=== PATIENT | female | born 1990 | race Caucasian/White ===

== ENCOUNTER 2024-11-05 15:05 | Outpatient (REF) | payer MEDICAID, SELFPAY ==
[2024-11-05 17:55] LABS: Cannabinoids THC Positive (Negative); METHADONE URINE SCREEN Negative (Negative)
[2024-11-07 12:20] LABS: Fentanyl Scr w/Rfx Confirm Negative ng/mL (<1)
== END 2024-11-05 15:06 | disposition home or self-care (01) ==
LOC: LBN 15:05
PROVIDERS: Visit Provider Advanced Practice Midwife
DX: O99.323 Drug use complicating pregnancy, third trimester (principal); F12.90 Cannabis use, unspecified, uncomplicated; O26.893 Other specified pregnancy related conditions, third trimester; R30.0 Dysuria
CPT/HCPCS: 80307; 80348; 87077; 87086; 87186

== ENCOUNTER 2024-11-27 15:00 | Outpatient (REF) | payer MEDICAID, SELFPAY | END 2024-11-27 15:01 | disposition home or self-care (01) | LOC: LBN 15:00 | PROVIDERS: Visit Provider Advanced Practice Midwife | DX: Z34.93 Encounter for supervision of normal pregnancy, unspecified, third trimester (principal) | CPT/HCPCS: 87081 ==

== ENCOUNTER 2024-12-03 16:19 | Outpatient (REF) | payer MEDICAID, SELFPAY | END 2024-12-03 16:20 | disposition home or self-care (01) | LOC: LBN 16:19 | PROVIDERS: Visit Provider Advanced Practice Midwife | DX: Z34.93 Encounter for supervision of normal pregnancy, unspecified, third trimester (principal) | CPT/HCPCS: 87086 ==

== ENCOUNTER 2024-12-05 04:08 | Outpatient (CLI) | payer MEDICAID, SELFPAY ==
--- NOTE | 2024-12-05 07:15 | DI.US_ITS ---
Exam(s) US OB SUSANNE WEIGHT EXAM: US OB SUSANNE WEIGHT CLINICAL HISTORY: size greater than dates Z34.93 SUPERVISION . TECHNIQUE: Transabdominal obstetrical ultrasound performed. COMPARISON: No exams were available for comparison FINDINGS:: Number of fetuses: 1 position: CEPHALIC Placental location: FUNDAL No evidence of previa. BIOMETRIC DATA: BPD: 9.6cm, 39weeks 1day HC: 36.32cm, out of range AC: 36.8cm, 40weeks 5days FL: 6.96cm, 35weeks 5days EFW: 3,892.73g, 8lb 10.43oz, >97% Composite Age: 38weeks 4days ZA: 12/15/2024 Heart Rate: 148bpm Amniotic fluid index: 33.8cm. Polyhydramnios IMPRESSION: size is nearly 2 weeks larger than gestational age. The estimated weight is above the 97th percentile Polyhydramnios. DATA REPOSITORY:
== END 2024-12-05 04:28 ==
LOC: DI 04:11
PROVIDERS: Visit Provider Advanced Practice Midwife
DX: Z34.93 Encounter for supervision of normal pregnancy, unspecified, third trimester (principal); Z3A.39 39 weeks gestation of pregnancy
CPT/HCPCS: 76816

== ENCOUNTER 2024-12-05 15:37 | Outpatient (CLI) | payer MEDICAID, SELFPAY ==
[2024-12-05 19:52] VITALS: BP 120/68; PULSE 65
[2024-12-05 20:47] VITALS: BP 120/68; PULSE 65; TEMP 36.6
--- NOTE | 2024-12-05 21:14 | W.OBNST ---
Date of service: 12/05/24 Time of Service: 21:14 NST Evaluation Reason for NST Reasons for Nonstress Test: POLYHYDRAMNIOS Gestational Age Gestational Age in Weeks and Days: 36 Weeks and 6Days Test and Monitor Explained Test/Monitor Explained: Test Explained, Monitor Explained and Patient Verbalized Understanding Vital Signs Blood Pressure: 120/68 Pulse: 65 Temperature: 97.9 F Urine Results Urine Protein: Negative Urine Ketones: Negative Urine Glucose: Negative Urine Blood: Negative NST Information Date on Monitor: 12/05/24 Time on Monitor: 19:48 Date off Monitor: 12/05/24 Time off Monitor: 20:15 Total Time on Monitor: 27 NST Interventions: None Contraction Frequency: 2-10 NST Evaluation Patient States Movement: Present FHR Baseline: 140 Variability: Moderate 6-25 bpm Accelerations: 15x15 Decelerations: None NST Results: Reactive Note Ultrasound Done: N/A. NST Note Note: Cvx: 1-2/thick, midpelvis and firm, vtx -4, intact membranes SUSANNE earlier today 33.8, EFW 97th percentile, random fingerstick glucose this evening=[address] Goode: NST x2/wk, BPP on Monday, repeat SUSANNE qweek, IOL @ 39 wks or earlier if SUSANNE increases Diagnosis and plan of care discussed in detail with pt and FOB, they express agreement with plan NST Reviewed and Verified by: Thao Frost
[2024-12-05 21:19] VITALS: BP 120/68; PULSE 65; TEMP 36.6
== END 2024-12-05 21:00 ==
LOC: BCD 15:37 → OBS 19:46
PROVIDERS: Visit Provider Advanced Practice Midwife
DX: Z3A.36 36 weeks gestation of pregnancy (principal); O40.3XX1 Polyhydramnios, third trimester, fetus 1
CPT/HCPCS: 59025

== ENCOUNTER 2024-12-09 07:26 | Outpatient (CLI) | payer MEDICAID, SELFPAY ==
--- NOTE | 2024-12-09 | DI.US_ITS ---
Exam(s) US OB BIOPHYSICAL PROFILE EXAM: US OB BIOPHYSICAL PROFILE CLINICAL HISTORY: polyhydramnios. TECHNIQUE: Transabdominal obstetrical ultrasound was performed. COMPARISON: US US OB SUSANNE WEIGHT from 12/05/2024 FINDINGS: There is a single viable intrauterine gestation with cardiac activity identified. Fetus is in cephalic position. Placenta is fundal. FINDINGS: BREATHING MOVEMENTS: 2 GROSS MOVEMENTS: 2 TONE: 2 AMNIOTIC FLUID VOLUME: 2 SUSANNE = 28.2 cm. This is polyhydramnios FHR= 135 bpm IMPRESSION: Biophysical profile is 8/8, with no points deducted. However, please note that there is polyhydramnios with SUSANNE = 28.2 cm DATA REPOSITORY:
[2024-12-09 09:15] VITALS: BP 124/74; PULSE 72; TEMP 36.5
[2024-12-09 09:17] VITALS: BP 124/74; PULSE 72
--- NOTE | 2024-12-09 09:58 | W.OBNST ---
Date of service: 12/09/24 Time of Service: 09:58 NST Evaluation Reason for NST Reasons for Nonstress Test: POLYHYDRAMNIOS Gestational Age Gestational Age in Weeks and Days: 37 Weeks and 3Days Test and Monitor Explained Test/Monitor Explained: Test Explained, Monitor Explained and Patient Verbalized Understanding Vital Signs Blood Pressure: 124/74 Pulse: 72 Temperature: 97.7 F NST Information Date on Monitor: 12/09/24 Time on Monitor: 09:15 Date off Monitor: 12/09/24 Time off Monitor: 09:35 Total Time on Monitor: 20 NST Interventions: None NST Evaluation Patient States Movement: Present FHR Baseline: 135 Variability: Moderate 6-25 bpm Accelerations: 15x15 and 10x10 Decelerations: None NST Results: Reactive Note Ultrasound Done: N/A. NST Note Note: Chrissy is here for twice weekly NST for polyhydramnios. reactive NST. To DI for BPP. Await results. Return to the Center for NST. IOL planned for 39 weeks NST Reviewed and Verified by: Meghan Freitas
[2024-12-09 09:59] VITALS: BP 124/74; PULSE 72; TEMP 36.5
== END 2024-12-09 09:40 ==
LOC: BCD 07:26 → OBS 09:14
PROVIDERS: Visit Provider Advanced Practice Midwife
DX: O40.3XX1 Polyhydramnios, third trimester, fetus 1 (principal); Z3A.37 37 weeks gestation of pregnancy
CPT/HCPCS: 76815; 59025; 76819

== ENCOUNTER 2024-12-12 08:51 | Outpatient (CLI) | payer MEDICAID, SELFPAY ==
[2024-12-12 09:16] VITALS: BP 122/79; PULSE 80; TEMP 37.1
--- NOTE | 2024-12-12 12:26 | W.OBNST ---
Date of service: 12/12/24 Time of Service: 12:26 NST Evaluation Reason for NST Reasons for Nonstress Test: POLYHYDRAMNIOS Gestational Age Gestational Age in Weeks and Days: 37 Weeks and 6Days Test and Monitor Explained Test/Monitor Explained: Test Explained, Monitor Explained and Patient Verbalized Understanding Vital Signs Blood Pressure: 122/79 Pulse: 80 Temperature: 98.8 F Urine Results Urine Protein: Negative Urine Ketones: Negative Urine Glucose: Negative Urine Blood: Negative NST Information Date on Monitor: 12/12/24 Time on Monitor: 09:04 Date off Monitor: 12/12/24 Time off Monitor: 09:32 Total Time on Monitor: 28 NST Interventions: PO Hydration and Notify Provider Contraction Frequency: Q3-4 NST Evaluation Patient States Movement: Present FHR Baseline: 140 Variability: Moderate 6-25 bpm Accelerations: 15x15 Decelerations: None NST Results: Reactive Note Ultrasound Done: N/A. NST Note Note: Chrissy is here for twice weekly NT due to polyhydramnios. reactive NST. IOL planned for 12/20 NST Reviewed and Verified by: Meghan Freitas
[2024-12-12 12:27] VITALS: BP 122/79; PULSE 80; TEMP 37.1
== END 2024-12-12 09:44 ==
LOC: BCD 08:51 → OBS 09:10
PROVIDERS: Visit Provider Advanced Practice Midwife
DX: O40.3XX1 Polyhydramnios, third trimester, fetus 1 (principal); Z3A.37 37 weeks gestation of pregnancy
CPT/HCPCS: 59025

== ENCOUNTER 2024-12-16 07:14 | Outpatient (CLI) | payer MEDICAID, SELFPAY ==
[2024-12-16 09:00] VITALS: BP 131/80; PULSE 65; TEMP 36.7
[2024-12-16 09:08] VITALS: BP 131/80; PULSE 65
--- NOTE | 2024-12-17 14:20 | W.OBNST ---
Date of service: 12/16/24 Time of Service: 10:00 NST Evaluation Reason for NST Reasons for Nonstress Test: POLYHYDRAMNIOS Gestational Age Gestational Age in Weeks and Days: 38 Weeks and 3Days Test and Monitor Explained Test/Monitor Explained: Test Explained, Monitor Explained and Patient Verbalized Understanding Vital Signs Blood Pressure: 131/80 Pulse: 65 Temperature: 98.1 F Urine Results Urine Protein: Positive Urine Ketones: Negative Urine Glucose: Negative Urine Blood: Negative NST Information Date on Monitor: 12/16/24 Time on Monitor: 09:07 Date off Monitor: 12/16/24 Time off Monitor: 09:54 Total Time on Monitor: 47 NST Interventions: PO Hydration NST Evaluation Patient States Movement: Present FHR Baseline: 135 Variability: Moderate 6-25 bpm Accelerations: 15x15 Decelerations: None NST Results: Reactive Note Ultrasound Done: N/A. NST Note Note: IOL scheduled for 12/20 NST Reviewed and Verified by: Thao Frost
[2024-12-17 14:21] VITALS: BP 131/80; PULSE 65; TEMP 36.7
== END 2024-12-16 10:22 ==
LOC: BCD 07:14 → OBS 08:53
PROVIDERS: Visit Provider Advanced Practice Midwife
DX: Z3A.38 38 weeks gestation of pregnancy (principal); O40.3XX1 Polyhydramnios, third trimester, fetus 1
CPT/HCPCS: 59025

== ENCOUNTER 2024-12-20 06:28 | Inpatient (IN) | payer MEDICAID, SELFPAY ==
[2024-12-20] VITALS (51 sets, daily range): BP systolic 104–132; BP diastolic 61–80; PULSE 48–86; RESP 16; TEMP 36.3–36.5; O2SAT 94–100; BMI 29.9
[2024-12-20 09:06] LABS: HCT 34.3 % (36.0-46.0); HGB 11.8 g/dL (11.2-15.7); MCH 30.2 pg (27.0-33.0); MCHC 34.4 % (32.0-36.0); MCV 88 fL (80-95); MPV 10.9 fL (8.0-11.0); Platelet Count 222 10^3/uL (130-400); RBC 3.91 10^6/uL (3.93-5.22); RDW 12.7 % (11.7-14.6); RDW-SD 40.4 fL; WBC 10.07 10^3/uL (4.4-10.8)
--- NOTE | 2024-12-20 09:40 | HPE_ITS ---
Date of service: 12/20/24 Time of Service: 09:40 Assessment and Plan Assessment and plan (1) Group B Streptococcus carrier state affecting : Status: Acute (2) Polyhydramnios affecting in third trimester: Status: Acute (3) Large for gestational age fetus affecting management of mother, antepartum: Status: Acute (4) Encounter for induction of labor: Status: Acute Assessment and plan: A: 34 yo @ 39 wks, IOL for polyhydramnios; cat 1 tracing, rockwell score=6 Known LGA fetus @ EFW 4000 gms, pelvis proven to 7'12 GBS+, Rh+, Rubella nonimmune, no visible HSV lesions on vulva/vaginal inspection Wellbutrin for depression, Valtrex for hx HSV Nml glucose screening results per records, pt transferred to [facility] @ 32 wks MJ use during , LONG-TERM completed with [facility] Elevated risks for SD and PPH reviewed with pt and with nursing staff P: Discussed IOL options with pt, she is comfortable with pitocin induction and AROM As pt is planning epidural anestheisa, will have this placed prior to beginning pitocin AROM in consultation with Dr. Vasques due to poly & high station Anticipate OB-HPI Labor/Delivery History of Present Illness Reason for Visit: Induction of labor polyhydramnios Chief Complaint: Scheduled Induction of Labor (polyhydramnios) Indication for Induction: Polyhydramnios. ZA Calculator Estimated Delivery Date Method Current WG Current Estimate 12/27/24 Ultrasound #1 39w 0d Other Estimates 12/02/24 LMP (Certain) 42w 4d History of Present Expected Delivery Route/Plan - CNM FOB/byfrnd - Alan Ball (first child together) BB will circ Rubella non-immune, offer MMR GBS positive, recommend PCN prophylaxis in labor Specific Issues/Plan 1. Transfer from [facility] @ 32 wks, records reviewed 2. MJ use, 32 wk UDS THC+, ref to [facility] for LONG-TERM, done 12/10 3. Anxiety/depression, takes Wellbutrin 300 mg, consult w/Dr. Andrews done 4. 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 hx gHTN first , not for 2nd 6. Hx PAP LGSIL and colpo done, PAP due at 8 wks 7. May want LC consult prior to (hx low milk production). Met with LC 12/03 8. Ecoli UTI at 32 wks, MacroBid 500 BID rx'ed. BRENDAN sent 12/03=neg 9. H/O third degree laceration 10. Size greater than dates: Growth US ordered 10a. On 12/05 EFW is >97th percentile and SUSANNE is 33, polyhydramnios, pt notifi ed & to for NST/cvx check, plan IOL 10b. 12/09-BPP 10/18 SUSANNE 28, continue twice weekly NST, Per Dr. Goode IOL @ 39 wks Assessment: History Reviewed & Current Informed Consent Informed Consent: Induction of Labor and Risk,Benefits,Alternatives Discussed Review of Systems All systems reviewed & are unremarkable except as noted in HPI and below PFSH All Active Problems (Updated 12/20/24 @ 09:50 by Thao Frost) Encounter for induction of labor (Acute) Group B Streptococcus carrier state affecting (Acute) Large for gestational age fetus affecting management of mother, antepartum (Acute) Polyhydramnios affecting in third trimester (Acute) History of disorder (Acute) History of depression, currently (Acute) Marijuana use during (Acute) Latent genital herpes simplex (HSV) in mother during (Acute) (Acute) Trauma (Acute) Panic (Acute) Anxiety (Chronic) 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 smear of cervix (Acute) 06/2024 Rubella non-immune status, antepartum (Acute) Anogenital HSV infection (Acute) Initial outbreak 2023 Medical History (Updated 12/20/24 @ 09:50 by Thao Frost) size consistent with dates during in third trimester Dysuria during Suicide and self-inflicted injury by cutting 2019 Gestational proteinuria Hx of abnormal cervical Pap smear Hypertension In first Surgical History (Updated 10/29/24 @ 09:31 by Georgia Perez RN, RN) History of colposcopy Family History (Updated 10/29/24 @ 09:39 by Georgia Perez RN, RN) Paternal Grandmother Cancer Maternal Grandmother Cancer Family history of problem with anesthesia or analgesia in patient's mother Asthma Father Stroke Hypertension Asthma Mother Depression Dementia alcohol related Sister Bipolar disorder Clotting disorder Von Willebrand disease Social History (Updated 10/29/24 @ 10:03 by Georgia Perez RN, RN) Smoking/Tobacco Use Status: Former Tobacco Use Smoking risk assessment performed?: Yes Alcohol Intake: never Drug use: Never Substance use type: marijuana Household members: children Housing: house current occupation: teacher at [email or web address] Do you feel safe at home: Yes Do you feel safe in your relationship?: Yes History History 3 Para 2 Hx # Term Pregnancies 2 Multiple births 0 Hx # Pregnancies 0 Ectopic pregnancies 0 AB induced 0 Hx Number of Living Children 2 AB spontaneous 0 Past Pregnancies Del. Date GA/Weeks # Preg Succ Route Wgt Sex Labor Lgth Anesth esia Location Prov Complic 05/11/18 41 No Yes vaginal 7 lb 9.695 oz Male 12 hrs [facility] 01/11/22 40 No Yes vaginal 7 lb 12.164 oz Male 8 hrs [facility] Delivery Date: 05/11/18 Last Updated by: Thao Frost IOL for postdates, had gHTN too, 3rd degree, Stepan Delivery Date: 01/11/22 Last Updated by: Thao Frost IOL for being 40+wks, nml [facility] Meds Allergies and Home Medications Allergies Allergy/AdvReac Type Severity Reaction Status Date / Time No Known Allergies Allergy Verified 12/17/24 12:46 Home Medications ?Medication ?Instructions ?Recorded ?Confirmed ?Type vits 115-iron fum 29 mg tab PO 10/29/2412/17 History iron-folic acid 1 mg-dss 25 mg tablet cranberry 500 mg capsule 500 mg PO BID 11/05/2412/20 History famotidine 40 mg tablet 40 mg PO DAILY 11/05/2412/11 History bupropion HCl 150 mg 24 hr tablet, 300 mg PO QAM 11/2012/20/24 History extended release (Wellbutrin XL) valacyclovir 500 mg tablet 500 mg PO BID #60 tabs 10/0412/20/24 Rx Exam Physical Exam Vital signs: Temp Pulse Resp BP Pulse Ox 97.7 F 65 16 113/76 98 12/20/24 09:01 12/20/24 09:24 12/20/24 09:01 12/20/24 09:23 12/20/24 09:24 Vital Signs Reviewed: Yes Constitutional Constitutional: no acute distress, average body habitus and cooperative Detailed Labor and Delivery Exam Dilation: 3 Effacement (%): 60 station: -3 (ballotable) Cervix position: mid Consistency: medium ROCKWELL Score(Cervical Ripeness Score): 6 Amniotic Membrane Status: Intact Contraction Frequency(min): infrequent Fetus A Heart Rate Baseline: 130 Monitor Accelerations: Present Monitor Decelerations: None Variability: Moderate (6-25 BPM) Presentation: Cephalic Categories: Category I Est. Weight: 8 lb 13.096 oz Est. Weight: 4000 gms HEENT Exam HEENT Exam: Normal Neck Exam Neck Exam: Normal Chest/Brest/Axilla Exam Chest Exam: Normal Breast Exam Breast Exam: Not Done Respiratory Exam Respiratory Exam: Normal Cardiovascular Exam Cardiovascular Exam: Normal Abdominal Exam Abdominal Exam: Normal (Gravid S>D, nontender) Rectal Exam Rectal Exam: Normal Exam Exam: Normal Extremities Exam Extremities Exam: Normal Back/Spine/Pelvis Exam Back Exam: Normal Pelvis Adequate: Yes (proven to ) Skin Exam Skin Exam: Normal Neurological Exam Neurological Exam: Normal Psychiatric Exam Psychiatric Exam: Normal Results Results Group Beta Strep: Positive Blood Type: A+ Rubella Status: Nonimmune Varicella Immunity: Immune Abnormal Lab Findings: Abnormal Labs 12/20/24 08:55 RBC 3.91 L Hct 34.3 L Risk Assessment Risk for Shoulder Dystocia Historical/Initial OB: NEGATIVE FOR: Pelvic Abnormality, Pre- BMI>30, Previous Shoulder Dystocia or Previous Macrosomia 36 Weeks: NEGATIVE FOR: Current Gestational DM, EFW>4500gms or Maternal Weight Gain>40lbs Increased Risk?: Yes Counseling: IOL at 39 wks for poly Delivery Plan @ 36wks: Risk for Pre-Eclampsia Daily Dose ASA Indicated: No Date Initiated/Initials: is not taking low dose ASA, too late to start at 32 wks Risk for Post- Hemorrhage Initial: NEGATIVE FOR: Multiple Gestation, Previous PPH, Known Clotting Deficiency, Grand Multiparity or Anticoagulation 36 Weeks: NEGATIVE FOR: Anemia, hgb<10, Low platelets(thrombocytopenia), Gestational HTN or Pre-E, Polyhydraminios or EFW>4500gms At Risk?: Yes (poly and LGA, IOL) Counseled re: Active Management: Yes Risks Reviewed Risks Reviewed Upon Admission: Yes
[2024-12-20] MEDS: Normal Saline Flush 10 ML SYR IVP (09:54)
--- NOTE | 2024-12-20 09:58 | ANES.PREOP_ITS ---
General Info Date of Service Date Performed: 12/20/24 Height: 5 ft 10 in Weight: 94.801 kg Body Mass Index (BMI): 29.9 Meds Allergies and Home Medications Allergies Allergy/AdvReac Type Severity Reaction Status Date / Time No Known Allergies Allergy Verified 12/17/24 12:46 Home Medication ?Medication ?Instructions ?Recorded vits 115-iron fum 29 mg tab PO 10/29/24 iron-folic acid 1 mg-dss 25 mg tablet cranberry 500 mg capsule 500 mg PO BID 11/05/24 famotidine 40 mg tablet 40 mg PO DAILY 11/05/24 bupropion HCl 150 mg 24 hr tablet, 300 mg PO QAM 11/20 extended release (Wellbutrin XL) valacyclovir 500 mg tablet 500 mg PO BID #60 tabs 10/04 Current Visit Medications: Current Medications Generic Name Dose Route Start Last Admin Trade Name Freq PRN Reason Stop Dose Admin Bupropion HCl 300 mg 12/20/24 08:30 Bupropion-Xl 150 Mg Tabcr PO QAM CHUCKIE Famotidine 40 mg 12/20/24 07:30 12/20/24 09:55 Famotidine 20 Mg Tab PO Not Given 0730 CHUCKIE Penicillin G Potassium 5,000, 100 mls @ 200 mls/hr 12/20/24 09:39 000 units/ Sodium Chloride IVPB 12/20/24 10:08 NOW ONE Penicillin G Potassium 3,000, 50 mls @ 100 mls/hr 12/20/24 09:45 000 units/ Sodium Chloride IVPB Q4H CHUCKIE IV Miscellaneous Supplies 1 each 12/20/24 06:30 Iv Access IV DIRECTED CHUCKIE Sodium Chloride 0 ml 12/20/24 06:28 Normal Saline Flush 10 Ml Syr IVP PRN PRN Sodium Chloride 0 ml 12/20/24 08:30 12/20/24 09:54 Normal Saline Flush 10 Ml Syr IVP 10 ml BID CHUCKIE Administration Sodium Chloride 0 ml 12/20/24 06:28 Normal Saline 10 Ml Vial IJ DIRECTED PRN Valacyclovir HCl 500 mg 12/20/24 08:30 Valacyclovir 500 Mg Tab PO BID CHUCKIE PFSH Active Problems Active Problems: Problem Status Onset Code Encounter for induction of labor Acute Z34.90 Group B Streptococcus carrier state affecting Acute O99.820 Large for gestational age fetus affecting management of mother, antepartum Acute O36.60X0 Polyhydramnios affecting in third trimester Acute O40.3XX0 History of disorder Acute Z87.59 History of depression, currently Acute O99.891, Z86.59 Marijuana use during Acute O99.320, F12.90 Latent genital herpes simplex (HSV) in mother during Acute O98.319, A60.09 Acute Z34.90 Trauma Acute T14.90XA Panic Acute F41.0 Anxiety Chronic F41.9 HPV in female Acute B97.7 LGSIL on Pap smear of cervix Acute R87.612 Rubella non-immune status, antepartum Acute Z34.90, Z28.39 Anogenital HSV infection Acute A60.9 Medical History Medical History (Updated 12/20/24 @ 09:50 by Thao Frost) size consistent with dates during in third trimester Dysuria during Suicide and self-inflicted injury by cutting 2019 Gestational proteinuria Hx of abnormal cervical Pap smear Hypertension In first Surgical History Surgical History (Updated 10/29/24 @ 09:31 by Georgia Perez RN, RN) History of colposcopy Tobacco Smoking/Tobacco Use Status: Former Tobacco Use Alcohol Alcohol Intake: never Substance Use Substance use: Never Substance use type: marijuana Prental History History 2 3 Para 2 Hx # Term Pregnancies 2 Multiple births 0 Hx # Pregnancies 0 Ectopic pregnancies 0 AB induced 0 Hx Number of Living Children 2 AB spontaneous 0 Past Pregnancies Del. Date GA/Weeks # Preg Succ Route Wgt Sex Labor Lgth Anesth esia Location [facility] 05/11/18 41 No Yes vaginal 3450 g Male 12 hrs regional [facility] service 01/11/22 40 No Yes vaginal 3520 g Male 8 hrs regional [facility] Delivery Date: 05/11/18 Last Updated by: Thao Frost IOL for postdates, had gHTN too, 3rd degree, Stepan Delivery Date: 01/11/22 Last Updated by: Thao Frost IOL for being 40+wks, nml Ankit Vital Signs and Lab Results Vital Signs Most Recent Vital Signs in EMR: Most Recent Vital Signs Temp Pulse Resp BP Pulse Ox 36.5 C 65 16 113/76 98 12/20/24 09:01 12/20/24 09:24 12/20/24 09:01 12/20/24 09:23 12/20/24 09:24 Lab Results 12/20/24 08:55 Blood Type / Crossmatch: 2 Antibody Screen NEGATIVE Today Complete Blood Count: 2 WBC, (4.4-10.8) 10.07 10^3/uL Today, 08:55 RBC, (3.93-5.22) 3.91 10^6/uL L Today, 08:55 Hgb, (11.2-15.7) 11.8 g/dL Today, 08:55 Hct, (36.0-46.0) 34.3 % L Today, 08:55 Plt Count, (130-400) 222 10^3/uL Today, 08:55 Anesthesia Assessment and Plan Anesthesia History Personal History: No History of Anesthesia Complications Family History: No Family History of Anesthesia Complications Exercise Tolerance Exercise Tolerance: Metabolic Equivalents>4 Pertinent Negatives Pertinent Negatives: No Symptoms of GERD Cardiac & Pulmonary Exam Cardiac Exam: Normal S1/S2 Heart Sounds Pulmonary Exam: Clear Bilateral Breath Sounds Implantable Cardiac Device Does patient have a Pacemaker or an ICD?: No Airway Exam Known Difficult Airway: No Mallampati Class: 1 Mouth Opening: Normal (> 3cm) Thyromental Distance: Greater than 3 cm Neck Range of Motion: Full ROM Neck Circumference: Normal Teeth Condition: Normal Dentition ASA Classification ASA Score: ASA 2 Emergency Case?: No NPO Status NPO Status: Full Stomach Status Status: Confirmed Anesthesia Plan Resuscitation Status: Full Code Anesthesia Technique: Labor Epidural Airway Planned: Natural Airway Monitors Used: Standard Monitors
[2024-12-20] MEDS: Lactated Ringers 1,000 ML 125 ML IV ×2 (10:30→19:55)
[2024-12-20] MEDS: FentaNYL/ROPIvacaine 2 mcg/ml and 0.1% 200 ML CADD Cassette EP (10:38)
[2024-12-20] MEDS: Penicillin G POT. 5,000,000 UNITS in Normal Saline 100 ML 200 UNITS IVPB (10:44)
[2024-12-20] MEDS: valACYclovir 500 MG TAB PO ×2 (11:13→19:50)
[2024-12-20] MEDS: buPROPion-XL 150 MG TABCR 300 MG PO (11:13)
--- NOTE | 2024-12-20 11:39 | ANES.NEUR_ITS ---
Epidural/Spinal Catheter Date Performed: 12/20/24 Procedure Start: 10:15 Procedure Stop: 10:40 Requesting Provider: Thao Frost Procedure Location: Obstetrics Reason Performed: Labor Epidural Standard Monitors Applied: Blood Pressure, SpO2 and See EMR for corresponding vital signs Patient Position: Sitting Sedation Given (Indicate Dose Given): No Sedation given Patient Mental Status: Awake Sterility: Hand Hygiene, Surgical Cap, Surgical Mask, Sterile Gloves, Sterile Drape/Sheet and Chlorhexidine Procedure Location: L3-L4 Interspace Epidural Needle: Tuohy 18 Gauge Needle Length: 3.5 Inch Needle Approach: Midline Epidural Procedure: Skin Prepped, Sterile Drape Placed, 1% Lidocaine to skin and subcutaneous tissue with 25G needle, Tuohy Needle placed, JORDAN to Saline Used, Epidural Catheter Placed, Negative Heme, Negative CSF Flow and Tuohy Needle Removed Catheter Placed?: Catheter Placed Test Dose (Indicate Dose Given): 3ml 1.5% Lidocaine with 1:200K Epinephrine Given and Negative Test Dose Loss of Resistance Depth (cm): 7 Catheter depth at skin (cm): 12 Dressing: Sorbaview Dressing Placed, Mastisol Used and Dressing reinforced with Tape Epidural Provid er Bolus (Indicate Dose Given): None Given Additives (Indicate Dose Given ): None Infusion Medication: Medication Infusion Began Medication Infusion: Ropivacaine 0.1% with Fentanyl 2mcg/ml Maintenance Infusion Rate (ml/hour): 10 PCEA Bolus Dose (ml): 5 Post Procedure Pain score (0-10): 0 Block Level: N/A Paresthesia: None Ultrasound: Not Used Number of Attempts (See previous attempts in note section): 1 Procedure Tolerated: No Complications and Patient tolerated well Procedure Outcome: Successful Procedure Comment:: Pt. being induced, would like epidural before pitocin. Epidural placed. Pt. needing multiple reminders to not arch back to optimize position. During initial epidural JORDAN, arched back, then relaxed. Catheter placed with ease through needle tip, then 2 cm in encountered minimal but noted resistance and then continued threading. negative test dose. Infusion started, PCEA education given. Questions answered. instructed to advise RN if any hand numbness/tingling. I did not bolus since no contractions at this time. Pt. will assess comfort throughout induction and request anesthesia if any questions. Otherwise straight forward placement. Performed By: Winston Guerrero
[2024-12-20] MEDS: Oxytocin/Normal Saline 30 UNIT/500 ML BAG 2 UNITS IV (12:44)
--- NOTE | 2024-12-20 14:22 | W.PM.OBNL1 ---
Date of service: 12/20/24 Time of Service: 14:22 Informed Consent Informed Consent: Induction of Labor, Regional Anesthesia and Risk,Benefits,Alternatives Discussed Pelvic Exam Dilation: 4 Effacement (%): 60 station: -3 Cervix Position: mid Contractions Monitor Mode: External Contraction Frequency(min): q2 Intensity: Moderate Fetus A Monitor: External (US) Heart Rate Baseline: 135 Variability: Moderate (6-25 BPM) Categories: Category I Accelerations: Present Decelerations: None Assessment and Plan Assessment and plan (1) Encounter for induction of labor: Status: Acute Assessment and plan: A: Contractions q2 min with pit at 4 mu/min, category 1 Cvx change to 4cm, pt comfortable with effective epidural, has had 2nd PCN dose P: Plan for AROM when acuity & volume on unit allows Anticipate later today Subjective Interval history since last seen: Pt comfortable with epidural in place, can feel contractions and move legs well.
[2024-12-20] MEDS: Penicillin G POT. 3,000,000 UNITS in Normal Saline 50 ML 100 UNITS IVPB ×2 (15:52→19:53)
--- NOTE | 2024-12-20 16:49 | PGE_ITS ---
Date of service: 12/20/24 Time of Service: 16:49 Informed Consent Informed Consent: Induction of Labor, Risk,Benefits,Alternatives Discussed and Other (AROM) Pelvic Exam Dilation: 5 Effacement (%): 70 station: -3 Cervix Position: mid Consistency: soft Contractions Monitor Mode: External Contraction Frequency(min): q2-3 Intensity: Moderate Fetus A Monitor: External (US) Heart Rate Baseline: 140 Variability: Moderate (6-25 BPM) Categories: Category I Accelerations: Present Decelerations: None Amniotic Membrane Status: Ruptured Rupture Method: Artifical Amniotic Fluid: Clear Amount: copious large amount Date of Membrane Rupture: 12/20/24 Time of Me mbrane Rupture: 16:40 Assessment and Plan Assessment and plan (1) Encounter for induction of labor: Status: Acute Assessment and plan: A: AROM after informed consent for copious clear fluid Head followed digitally as it settled onto cvx, cat 1 tracing persisted Pt and fetus tolerate procedure well, pitocin @ 4mu/min P: Maternal positioning to facilitate rotation and descent Comfort measures as pt desires Hand off to Aurther, CNM Objective Vital Signs Reviewed: Yes
--- NOTE | 2024-12-20 19:03 | W.PM.OBNL1 ---
Date of service: 12/20/24 Time of Service: 19:03 Pelvic Exam Dilation: 6 Effacement (%): 70 station: -1 Cervix Position: mid Consistency: soft Vaginal Exam Presentation: Cephalic Contractions Monitor Mode: External Contraction Frequency(min): q2.5-3 minutes Intensity: Moderate/Strong Fetus A Monitor: External (US) Heart Rate Baseline: 135 Variability: Moderate (6-25 BPM) Categories: Category I Accelerations: Present Decelerations: None Assessment and Plan Assessment and plan (1) Group B Streptococcus carrier state affecting : Status: Acute Assessment and plan: - Continues to receive prophylaxis (2) Encounter for induction of labor: Status: Acute (3) 39 weeks gestation of : Status: Acute (4) Polyhydramnios affecting in third trimester: Status: Acute (5) Large for gestational age fetus affecting management of mother, antepartum: Status: Acute Assessment and plan: - EFW by Adonay is 3.8 kg A: IUP at 39 weeks AROM x 2 hours Category I surveillance Induction of labor for polyhydramnios, entering active labor on Pitocin GBS+, adequate prophylaxis now received LGA by recent sonogram, though EFW by Rajan's estimate closer to 3.8 kg P: - Continue present care, titrating Pitocin to maintain regular, moderate - strong contractions - Discussed risk for shoulder dystocia, and maneuvers to relieve a shoulder dystocia should one occur. The maternal pelvis is very roomy, and EFW is estimated to be smaller than recent sonogram, so clinical concern for shoulder dystocia is low. - Reassess in 2 hours or sooner PRN Objective Abnormal lab results 12/20/24 Range/Units 08:55 RBC 3.91 L (3.93-5.22) 10^6/uL Hct 34.3 L (36.0-46.0) % Temp Pulse Resp BP Pulse Ox 97.3 F L 52 L 16 113/69 99 12/20/24 18:07 12/20/24 18:07 12/20/24 18:07 12/20/24 18:07 12/20/24 18:07 Laboratory Results WBC 10.07 10^3/uL (4.4-10.8) 12/20/24 08:55 RBC 3.91 10^6/uL (3.93-5.22) L 12/20/24 08:55 Hgb 11.8 g/dL (11.2-15.7) 12/20/24 08:55 Hct 34.3 % (36.0-46.0) L 12/20/24 08:55 MCV 88 fL (80-95) 12/20/24 08:55 MCH 30.2 pg (27.0-33.0) 12/20/24 08:55 MCHC 34.4 % (32.0-36.0) 12/20/24 08:55 RDW 12.7 % (11.7-14.6) 12/20/24 08:55 Plt Count 222 10^3/uL (130-400) 12/20/24 08:55 MPV 10.9 fL (8.0-11.0) 12/20/24 08:55 ABO/Rh A Positive 12/20/24 08:55 Antibody Screen NEGATIVE 12/20/24 08:55 Subjective Interval history since last seen: Chrissy is resting in bed, comfortable with the epidural. She is aware of contractions, but is managing them well. She is feeling increasing pelvic pressure. She is able to ambulate with assist to the bedside commode to empty her bladder. Results Hemoglobin/Hematocrit: Hgb 11.8 g/dL (11.2-15.7) 12/20/24 08:55 Hct 34.3 % (36.0-46.0) L 12/20/24 08:55 Abnormal Lab Findings: Abnormal Labs 12/20/24 08:55 RBC 3.91 L Hct 34.3 L
--- NOTE | 2024-12-20 20:49 | OBVDS_ITS ---
Date of service: 12/20/24 Time of Service: 20:49 OB Labor/ Delivery Information Providers Nurse Automatic Head Sawyer: Reena Peterson Nurse: Marisela Abraham Nurse: Petra Zheng Labor/Delivery Information Number of Babies in Womb: 1 Steroids Given: None Reason Steroids Not Administered: N/A Group Beta Strep: Positive Antibiotics Administered: Yes Number of Doses of Antibiotics: 3 Rubella Status: Nonimmune Blood Type: A+ Varicella Immunity: Immune Maternal Complications: None Shoulder Dystocia: Yes Stages of Labor Onset of Labor Date: 12/20/24 Onset of Labor Time: 18:57 Complete Dilatation Date: 12/20/24 Complete Dilatation Time: 20:20 Labor - Stage 1 Duration: 1 hours and 23 minutes ROM Baby A: 12/20/24 ROM Baby A: 16:40 ROM Total Time- Baby A: [id number] Delivery Date-Baby A: 12/20/24 Delivery Time-Baby A: 20:26 Labor Stage 2 Duration: 6 minutes Placenta Delivery Date-Baby A: 12/20/24 Placenta Delivery Time-Baby A: 20:37 Labor-Stage 3 Duration: 11 minutes Total Length of Labor-Baby A: 1 hours and 29 minutes Placenta Cultured: No Placenta Status: Delivered Baby A Gender: Male Gestational Status: Term (39-41.6 wks) Gestational Age in Weeks/Days: 39 Weeks and 0 Days Score-1 Minute Interval(Baby A) Heart Rate-1 minute: 100 BPM or Greater Respiratory Effort- 1 minute: Spontaneous/Strong Cry Muscle Tone-1 minute: Active Movement Reflex Response-1 minute: Prompt Response Color-1 minute: Bluish Hands or Feet Total Score-1 minute: 9 Score-5 Minute Interval(Baby A) Heart Rate- 5 minute: 100 BPM or Greater Respiratory Effort-5 minute: Spontaneous/Strong Cry Muscle Tone-5 minute: Active Movement Reflex Response-5 minute: Prompt Response Color-5 minute: Bluish Hands or Feet Total Score- 5 minute: 9 Note: Now Gestational age: 39w0d 1st stage of labor: Inudction of labor for polyhydramnios using Pitocin then AROM. She used an epidural for pain relief. 2nd stage of labor: She was found to be complete, and she commenced pushing at +1 station. In a semi-reclining position, she had a NSVB of a viable male infant. The infant was born OA, and restituted to ROT. The shoulder and body did not deliver immediately with gentle axial traction, so the foot of the bed was dropped she was assisted into McRobert's position at which point the shoulder and body delivered. Time from head to body was 40 seconds. A nuchal cord was noted, through which the was somersaulted. The was immediately vigorous, and was placed on the maternal abdomen where he continued to cry, and was dried. 3rd stage of labor: Dilute IV Pitocin was given for active management of the 3rd stage of labor. The cord was double clamped by this CNM after > 5 minutes of age and transected by the 's father. Cord blood was collected for routine analysis. After separation bleeding and cord lengthening were noted, the placenta expelled spontaneously, intact, 3-V cord, Pichardo mechanism. The fundus was massaged and found to be firm. No clots were expressed despite vigorous massage. EBL 250. The perineum was inspected and to be intact, though a minor periurethral abrasion was noted (hemostatic, not in need of repair). Mother and infant stable at the conclusion of this note. Intrapartum complications: mild shoulder dystocia Shoulder Dystocia Delivery Times Head to Body Delivery Interval(minutes): 40 seconds Verify No Fundal Pressure Applied Fundal Pressure: No Pressure Applied Arm Under Sympisis Note: left
[2024-12-20] MEDS: Ibuprofen 600 MG TAB PO (22:00)
[2024-12-20] MEDS: Acetaminophen 325 MG TAB 650 MG PO (22:00)
[2024-12-21] MEDS: Ibuprofen 600 MG TAB PO ×3 (03:22→16:35)
[2024-12-21] MEDS: Acetaminophen 325 MG TAB 650 MG PO ×3 (03:22→16:36)
[2024-12-21] MEDS: Docusate Sodium 100 MG CAP PO ×2 (03:22→16:35)
[2024-12-21 08:10] VITALS: BP 124/82; PULSE 61; RESP 16; TEMP 36.5
[2024-12-21] MEDS: Famotidine 20 MG TAB 40 MG PO (08:40)
[2024-12-21] MEDS: buPROPion-XL 150 MG TABCR 300 MG PO (08:40)
[2024-12-21] MEDS: Dibucaine 1% 28 GM TUBE TP (08:52)
[2024-12-21] MEDS: Hamamelis Leaf/Glycerin 100 EACH BOX PR (08:52)
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
[2024-12-21 12:25] VITALS: BP 115/73; PULSE 68; RESP 16; TEMP 36.7; O2SAT 98
[2024-12-21 16:00] VITALS: BP 127/62; PULSE 78; RESP 16; TEMP 36.6
[2024-12-21] MEDS: Measles, Mumps, & Rubella Vaccine 0.5 ML VIAL SC (16:36)
[2024-12-21 19:19] VITALS: BP 125/79; PULSE 69; RESP 12; TEMP 36.8; O2SAT 100
== END 2024-12-21 21:10 | disposition home or self-care (01) | DRG 806 ==
PROVIDERS: Admitting Provider Advanced Practice Midwife; Visit Provider Advanced Practice Midwife
DX: O40.3XX0 Polyhydramnios, third trimester, not applicable or unspecified (principal); O98.32 Other infections with a predominantly sexual mode of transmission complicating childbirth; Z37.0 Single live birth; O99.324 Drug use complicating childbirth; O99.824 Streptococcus B carrier state complicating childbirth; Z3A.39 39 weeks gestation of pregnancy; O36.60X0 Maternal care for excessive fetal growth, unspecified trimester, not applicable or unspecified; A60.09 Herpesviral infection of other urogenital tract; O99.344 Other mental disorders complicating childbirth; F32.A Depression, unspecified; F12.90 Cannabis use, unspecified, uncomplicated; F41.9 Anxiety disorder, unspecified; N87.9 Dysplasia of cervix uteri, unspecified; O69.81X0 Labor and delivery complicated by cord around neck, without compression, not applicable or unspecified; O71.82 Other specified trauma to perineum and vulva; O66.0 Obstructed labor due to shoulder dystocia
CPT/HCPCS: 36415; 85027; 86850; 86900; 86901; 90707; J2540

== ENCOUNTER 2025-01-31 14:05 | Outpatient (REF) | payer MEDICAID, SELFPAY ==
--- NOTE | 2025-01-31 13:30 | PAPFT_PTH ---
PATIENT: Chrissy Rodriguez LOC: [facility] U#:[id number] AGE/SX: 34/F ROOM: RE01/31/[address]: Meghan Freitas : 1990 BED: DIS: 01/31/2025 SPEC #: [id number] RECD: 01/31/25 18:31 STATUS: ZENAIDA REMando #: [id number] JEWELL: 01/31/25 13:[address]: Meghan Freitas DEPT: [facility] Cytology RECD BY: Eula Bender ENTERED: 01/31/25 18:31 SP TYPE: PAPFT POOJA DR: Unknown,Unknown Tissues: 1 - CX/ENDOCX FOR PAP SMEARS Procedures: PAP THIN PREP/[facility] Screening HPV DNA PROBE Comments: [id number] (HPV 16 & 18/45)
== END 2025-01-31 14:06 | disposition home or self-care (01) ==
LOC: LBN 14:05
PROVIDERS: Visit Provider Advanced Practice Midwife
DX: N89.8 Other specified noninflammatory disorders of vagina (principal); Z12.4 Encounter for screening for malignant neoplasm of cervix
CPT/HCPCS: 88142; 87480; 87510; 87624; 87660